=== PATIENT | female | born 1970 | race Caucasian/White ===

== ENCOUNTER → 2016-10-28 | Outpatient (CLI) | payer BC, OTHER ==
[2016-10-28 09:12] LABS: BUN/CREATININE RATIO 32 (0-10)
== END ==
LOC: LAB 08:03
PROVIDERS: Family Medicine
DX: I10 Essential (primary) hypertension (principal); E55.9 Vitamin D deficiency, unspecified
CPT/HCPCS: 36415; 80053; 80061

== ENCOUNTER 2016-11-02 04:54 | Emergency (ER) | payer BC, OTHER | END 2016-11-02 07:18 | disposition home or self-care (01) | LOC: ER1 04:54 | DX: G43.909 Migraine, unspecified, not intractable, without status migrainosus (principal); Z88.2 Allergy status to sulfonamides; Z88.5 Allergy status to narcotic agent | CPT/HCPCS: 96361; 96374; 96375; 99283; J1200; J1885; J2765 ==

== ENCOUNTER → 2016-11-13 | Outpatient (CLI) | payer BC, OTHER | LOC: MRI 13:10 | DX: M50.20 Other cervical disc displacement, unspecified cervical region (principal); M54.12 Radiculopathy, cervical region; M47.22 Other spondylosis with radiculopathy, cervical region; M48.02 Spinal stenosis, cervical region; M99.71 Connective tissue and disc stenosis of intervertebral foramina of cervical region | CPT/HCPCS: 72156; A9577 ==

== ENCOUNTER 2016-12-29 15:04 | Emergency (ER) | payer BC | END 2016-12-29 18:14 | disposition home or self-care (01) | LOC: ER1 15:04 | DX: G43.909 Migraine, unspecified, not intractable, without status migrainosus (principal); Z88.2 Allergy status to sulfonamides; Z88.5 Allergy status to narcotic agent; Z79.899 Other long term (current) drug therapy | CPT/HCPCS: 96361; 96374; 96375; 99283; J1200; J1885; J2270; J2765; J7030 ==

== ENCOUNTER → 2017-01-05 | Outpatient (CLI) | payer BC | LOC: LAB 17:46 | DX: M54.12 Radiculopathy, cervical region (principal); M50.20 Other cervical disc displacement, unspecified cervical region; Z79.899 Other long term (current) drug therapy | CPT/HCPCS: 36415; 80307 ==

== ENCOUNTER → 2020-07-25 | Outpatient (CLI) | payer BC, OTHER ==
[~2020-07-25] MED LIST: COLACE 100MG C100 MG PO; COUMADIN2.5 MG PO; CYMBALTA60 MG PO; FENOFIBRATE145 MG PO; FLOVENT DISKU100 MCG INH; HYDROXYZINE HCL10 MG PO; IBUPROFEN600 MG PO; LORCET PLUS 7.1 EACH PO; MACROBID 100 M100 MG PO; MAGNESIUM400 M2 PO; NEURONTIN 100100 MG PO; NEXIUM40 M1 PO; PERCOCET 10-321 EACH PO; PHENERGAN 12.12.5 M1 PO; POTASSIUM CHLO20 ME2 PO; PROAIR DIGIHAL90 MCG INH; TOPAMAX100 MG PO; VITAMIN D21250 MCG PO; VITAMIN D250000 UNIT PO; ZANAFLEX4 M1 PO; ZOFRAN ODT 4 MG4 MG PO
== END ==
LOC: RAD 12:21
DX: M79.672 Pain in left foot (principal)
CPT/HCPCS: 73630

== ENCOUNTER → 2020-09-26 | Outpatient (CLI) | payer BC, OTHER ==
[2020-09-26 10:26] LABS: HEMOGLOBIN 13.5 gm/dl (12.3-15.3); RED BLOOD COUNT 4.55 M/UL (4.00-5.10); WHITE BLOOD COUNT 6.5 K/UL (4.5-11.0)
[2020-09-26 10:57] LABS: BUN/CREATININE RATIO 27 (0-10)
[2020-09-27 10:14] LABS: CREATININE, URINE 103.4 mg/dL (Not Estab.)
== END ==
LOC: LAB 08:36
PROVIDERS: Internal Medicine
DX: E11.65 Type 2 diabetes mellitus with hyperglycemia (principal)
CPT/HCPCS: 80048; 80061; 80076; 82043; 82570; 83036; 84443; 85025

== ENCOUNTER → 2020-11-06 | Outpatient (CLI) | payer BC, OTHER | LOC: LAB 08:35 | DX: E78.5 Hyperlipidemia, unspecified (principal) | CPT/HCPCS: 80061 ==

== ENCOUNTER 2020-11-25 07:06 | Emergency (ER) | payer BC, OTHER ==
[~2020-11-25 07:06] MED LIST changes: -FLOVENT DISKU100 MCG INH; -MACROBID 100 M100 MG PO; -PROAIR DIGIHAL90 MCG INH; -ZOFRAN ODT 4 MG4 MG PO
== END 2020-11-25 11:20 | disposition home or self-care (01) ==
LOC: ER1 07:06
DX: U07.1 COVID-19 (principal); I10 Essential (primary) hypertension; E78.5 Hyperlipidemia, unspecified; Z90.710 Acquired absence of both cervix and uterus; Z88.2 Allergy status to sulfonamides; Z88.5 Allergy status to narcotic agent; Z79.899 Other long term (current) drug therapy
CPT/HCPCS: 0240U; 71045; 87081; 87880; 99283

== ENCOUNTER 2020-11-28 05:48 | Emergency (ER) | payer BC, OTHER ==
[2020-11-28 06:22] LABS: HEMOGLOBIN 13.7 gm/dl (12.3-15.3); RED BLOOD COUNT 4.6 M/UL (4.00-5.10)
[2020-11-28 06:40] LABS: BUN/CREATININE RATIO 20 (0-10)
[2020-11-28] MEDS ORDERED: MACROBID 100 M100 MG PO (09:12)
[2020-11-28] MEDS ORDERED: FLOVENT DISKU100 MCG INH (09:12)
[2020-11-28] MEDS ORDERED: ZOFRAN ODT 4 MG4 MG PO (09:12)
[2020-11-28] MEDS ORDERED: PROAIR DIGIHAL90 MCG INH (09:12)
== END 2020-11-28 09:28 | disposition home or self-care (01) ==
LOC: ER1 05:48
PROVIDERS: Family Medicine
DX: U07.1 COVID-19 (principal); J12.82 Pneumonia due to coronavirus disease 2019; N30.90 Cystitis, unspecified without hematuria; Z90.710 Acquired absence of both cervix and uterus
CPT/HCPCS: 71045; 80053; 81001; 83605; 83615; 83690; 85025; 86140; 99285; Q9967

== ENCOUNTER → 2020-12-11 | Outpatient (CLI) | payer BC, OTHER ==
[~2020-12-11] MED LIST changes: +FLOVENT DISKU100 MCG INH; +MACROBID 100 M100 MG PO; +PROAIR DIGIHAL90 MCG INH; +ZOFRAN ODT 4 MG4 MG PO
== END ==
LOC: RAD 13:41
DX: U07.1 COVID-19 (principal); R06.02 Shortness of breath; R91.8 Other nonspecific abnormal finding of lung field
CPT/HCPCS: 71046

== ENCOUNTER → 2020-12-27 | Outpatient (CLI) | payer BC, OTHER | LOC: RAD 07:09 | DX: U07.1 COVID-19 (principal); R06.02 Shortness of breath | CPT/HCPCS: 71046 ==

== ENCOUNTER → 2021-03-07 | Outpatient (CLI) | payer BC | LOC: MAMO 08:00 | DX: Z12.31 Encounter for screening mammogram for malignant neoplasm of breast (principal) | CPT/HCPCS: 77063; 77067 ==

== ENCOUNTER → 2021-03-12 | Outpatient (CLI) | payer BC ==
[2021-03-13 19:08] LABS: AMPHETAMINES, URINE Negative ng/mL (Cutoff=1000); BARBITURATE Negative ng/mL (Cutoff=200); BENZODIAZEPINES Negative ng/mL (Cutoff=200); CANNABINOIDS Negative ng/mL (Cutoff=20); COCAINE (METABOLITE) Negative ng/mL (Cutoff=300); MEPERIDINE Negative ng/mL (Cutoff=200); METHADONE Negative ng/mL (Cutoff=300); OPIATES Negative ng/mL (Cutoff=300); PHENCYCLIDINE Negative ng/mL (Cutoff=25); PROPOXYPHENE Negative ng/mL (Cutoff=300)
== END ==
LOC: LAB 13:19
PROVIDERS: Internal Medicine
DX: Z51.81 Encounter for therapeutic drug level monitoring (principal); Z79.899 Other long term (current) drug therapy
CPT/HCPCS: 80307

== ENCOUNTER 2021-05-29 03:23 | Inpatient (IN) | payer BC ==
[~2021-05-29] VITALS: Ht 175.3 cm; Wt 109.3 kg
[~2021-05-29 03:23] MED LIST changes: -CYMBALTA60 MG PO; -HYDROXYZINE HCL10 MG PO; -NEURONTIN 100100 MG PO; -NEXIUM40 M1 PO; -VITAMIN D21250 MCG PO; -ZANAFLEX4 M1 PO
[2021-05-29 04:13] LABS: HEMOGLOBIN 13.8 gm/dl (12.3-15.3); RED BLOOD COUNT 4.63 M/UL (4.00-5.10); WHITE BLOOD COUNT 8.3 K/UL (4.5-11.0)
[2021-05-29 04:28] LABS: BUN/CREATININE RATIO 19 (0-10)
[2021-05-29] MEDS ORDERED: VITAMIN D21250 MCG PO (07:07)
[2021-05-29] MEDS ORDERED: ZANAFLEX4 M1 PO (07:19)
[2021-05-29] MEDS ORDERED: CYMBALTA60 MG PO (07:20)
[2021-05-29] MEDS ORDERED: NEXIUM40 MG PO (07:31)
[2021-05-29] MEDS ORDERED: HYDROXYZINE HCL25 MG PO (07:32)
[2021-05-29] MEDS ORDERED: NEURONTIN400 MG PO (07:33)
[2021-05-29] MEDS ORDERED: CARVEDILOL12.5 MG PO (10:16)
--- NOTE | 2021-05-30 00:49 | NUR ---
NG TUBE TO RIGHT NARE CLAMPED AT 1942 ON 05/29/21 AND UNCLAMPED AT 2014 ON 05/29/21 TO ALLOW FOR PO MEDICATION ABSORPTION PER MD ORDERS. AMPARO
[2021-05-30 06:48] LABS: HEMOGLOBIN 14.2 gm/dl (12.3-15.3); RED BLOOD COUNT 4.77 M/UL (4.00-5.10); WHITE BLOOD COUNT 8.5 K/UL (4.5-11.0)
[2021-05-30 06:56] LABS: BUN/CREATININE RATIO 15 (0-10)
[2021-05-31 07:03] LABS: HEMOGLOBIN 13.1 gm/dl (12.3-15.3); RED BLOOD COUNT 4.4 M/UL (4.00-5.10); WHITE BLOOD COUNT 8.1 K/UL (4.5-11.0)
[2021-05-31 07:23] LABS: BUN/CREATININE RATIO 14 (0-10)
[2021-06-01 07:44] LABS: HEMOGLOBIN 12.5 gm/dl (12.3-15.3); RED BLOOD COUNT 4.44 M/UL (4.00-5.10)
[2021-06-01 07:45] LABS: WHITE BLOOD COUNT 5.6 K/UL (4.5-11.0)
[2021-06-01 08:22] LABS: BUN/CREATININE RATIO 27 (0-10)
--- NOTE | 2021-06-01 08:35 | NUR ---
Called Dr. Phillips with xray results of small bowel obstruction, Dr. Phillips requested that I call Surgery, and I notified Dr. Moore- no new orders recieved.
[2021-06-02 09:12] LABS: HEMOGLOBIN 13.3 gm/dl (12.3-15.3); RED BLOOD COUNT 4.44 M/UL (4.00-5.10); WHITE BLOOD COUNT 9.6 K/UL (4.5-11.0)
[2021-06-02 09:37] LABS: BUN/CREATININE RATIO 14 (0-10)
== END 2021-06-03 12:12 | disposition home or self-care (01) | DRG 336 ==
LOC: ER1 03:23 → M/S 06:33 → CDU 06:33 → M/S 10:03
PROVIDERS: Family Medicine; Internal Medicine; Surgery; ADMIT Internal Medicine
PROC: 3E0G76Z Introduction of Nutritional Substance into Upper GI, Via Natural or Artificial Opening (ICD-10-PCS; 2021-05-29)
PROC: 0DH67UZ Insertion of Feeding Device into Stomach, Via Natural or Artificial Opening (ICD-10-PCS; 2021-05-29)
PROC: 0DNU4ZZ Release Omentum, Percutaneous Endoscopic Approach (ICD-10-PCS; principal; 2021-05-30 21:07)
DX: K43.6 Other and unspecified ventral hernia with obstruction, without gangrene (principal); K56.7 Ileus, unspecified; Z20.822 Contact with and (suspected) exposure to COVID-19; F32.A Depression, unspecified; I10 Essential (primary) hypertension; G89.29 Other chronic pain; M50.30 Other cervical disc degeneration, unspecified cervical region; M51.36 Other intervertebral disc degeneration, lumbar region; K76.0 Fatty (change of) liver, not elsewhere classified; I73.9 Peripheral vascular disease, unspecified; E66.9 Obesity, unspecified; K46.9 Unspecified abdominal hernia without obstruction or gangrene; F41.9 Anxiety disorder, unspecified; M79.7 Fibromyalgia; Z90.49 Acquired absence of other specified parts of digestive tract; Z90.710 Acquired absence of both cervix and uterus; Z98.891 History of uterine scar from previous surgery; Z88.1 Allergy status to other antibiotic agents; Z88.5 Allergy status to narcotic agent; Z88.2 Allergy status to sulfonamides; Z68.35 Body mass index [BMI] 35.0-35.9, adult
CPT/HCPCS: 36415; 74018; 74019; 80048; 80053; 82550; 82553; 83690; 83735; 83874; 84100; 84484; 85025; 85027; 93005; 99284; J0360; J0690; J1650; J1885; J2001; J2270; J2405; J2550; J2704; J2710; J3010; J3480; J7030; J7120; Q9967; U0002

== ENCOUNTER → 2021-06-10 | Outpatient (CLI) | payer BC ==
[~2021-06-10] MED LIST changes: +CARVEDILOL12.5 MG PO; +CYMBALTA60 MG PO; +HYDROXYZINE HCL25 MG PO; +NEURONTIN400 MG PO; +NEXIUM40 MG PO; +VITAMIN D21250 MCG PO; +ZANAFLEX4 M1 PO
== END ==
LOC: RAD 16:41
DX: R10.9 Unspecified abdominal pain (principal); R14.3 Flatulence
CPT/HCPCS: 74019

== ENCOUNTER → 2021-11-11 | Outpatient (CLI) | payer BC ==
[2021-11-11 08:56] LABS: HEMOGLOBIN 12.7 gm/dl (12.3-15.3); RED BLOOD COUNT 4.24 M/UL (4.00-5.10); WHITE BLOOD COUNT 7.1 K/UL (4.5-11.0)
[2021-11-11 09:13] LABS: BUN/CREATININE RATIO 32 (0-10)
== END ==
LOC: LAB 08:12
PROVIDERS: Nurse Practitioner Family
DX: E11.65 Type 2 diabetes mellitus with hyperglycemia (principal); E53.8 Deficiency of other specified B group vitamins; E55.9 Vitamin D deficiency, unspecified; E87.6 Hypokalemia; I10 Essential (primary) hypertension
CPT/HCPCS: 36415; 80053; 80061; 82607; 83036; 83735; 84443; 85025

== ENCOUNTER → 2021-12-11 | Outpatient (CLI) | payer BC ==
[2021-12-12 13:11] LABS: EBV AB VCA, IGM <36.0 U/mL (0.0-35.9)
== END ==
LOC: LAB 12:35
PROVIDERS: Nurse Practitioner Family
DX: R53.83 Other fatigue (principal)
CPT/HCPCS: 36415; 86644